=== PATIENT | female | born 1950 | race Caucasian/White ===

== ENCOUNTER 2018-09-26 10:59 | Inpatient (IN) | payer OTHER | END 2018-09-29 11:50 | disposition home or self-care (01) | LOC: EDH 10:59 → 4AH 09-27 02:00 → EDHIP 11:00 | DX: K57.92 Diverticulitis of intestine, part unspecified, without perforation or abscess without bleeding (principal); N39.0 Urinary tract infection, site not specified; M48.00 Spinal stenosis, site unspecified; I10 Essential (primary) hypertension; E78.5 Hyperlipidemia, unspecified ==

== ENCOUNTER 2019-07-02 12:58 | Observation (INO) | payer OTHER ==
[~2019-07-02] VITALS: Ht 144.8 cm; Wt 55.6 kg
[~2019-07-02 12:58] MED LIST: CITA-107 PO; EZET10TA13 PO; HYDR-4068 PO; LANS30CA53 PO; LISI40TA4 PO; LOVA10TA2 PO; MELO10PO MC; RANI-379 PO; VENL-53 PO
[2019-07-02 13:36] LABS: BASOPHILS % (AUTO) 0.7 % (0.0-5.0); EOSINOPHILS % (AUTO) 3.1 % (0.0-8.0); HEMATOCRIT 36.1 % (36-48); LYMPHOCYTES % (AUTO) 42.3 % (21.0-51.0); MEAN CORPUSCULAR HEMOGLOBIN 32.2 pg (27.0-33.0); MEAN CORPUSCULAR HGB CONC 33.7 g/dL (32.0-36.0); MEAN CORPUSCULAR VOLUME 95.5 fL (79-99); MONOCYTES % (AUTO) 8.8 % (3.0-13.0); NEUTROPHILS % (AUTO) 45.1 % (40.0-77.0); NUCLEATED RED BLOOD CELLS 0.1 % (0.0-0.19); PLATELET COUNT (AUTO) 268 K/uL (130-400); RED BLOOD CELL COUNT(AUTO) 3.78 MIL/uL (4.00-5.50); RED CELL DISTRIBUTION WIDTH 14.2 % (11.0-15.5)
[2019-07-02 13:46] LABS: CREATININE 0.8 mg/dL (0.5-1.5); POTASSIUM 3.8 mmol/L (3.5-5.1)
[2019-07-02 14:12] LABS: ALBUMIN 3.1 g/dL (3.5-5.0); BILIRUBIN,TOTAL 0.8 mg/dL (0.2-1.0); TOTAL PROTEIN, SERUM 5.9 g/dL (6.0-8.3)
[2019-07-02] MEDS ORDERED: SODIUM CHLORIDE 0.9% 1000ML 1,000 ML IV ONE (14:48)
[2019-07-02] MEDS ORDERED: DEXAMETHASONE SOD PHOSPHATE 10MG/ML 1ML VIAL ONE (14:52)
[2019-07-02] MEDS ORDERED: HYDROCODONE/ACETAMINOPHEN 10/325 MG TAB ONE (14:53)
[2019-07-02] MEDS ORDERED: IOHEXOL-350 75 ML VIAL IV ONE (15:03)
[2019-07-02 15:06] LABS: APPEARANCE,URINE Clear (CLEAR); BILIRUBIN,URINE Negative (NEGATIVE); COLOR,URINE Yellow (YELLOW); GLUCOSE, URINE (UA) Negative (NEGATIVE); KETONES,URINE Negative (NEGATIVE); LEUKOCYTE ESTERASE ,URINE Moderate (NEGATIVE); NITRATE,URINE Negative (NEGATIVE); OCCULT BLOOD,URINE Negative (NEGATIVE); PH,URINE 6.5 (5.0-8.0); PROTEIN,URINE Negative (NEGATIVE); UROBILINOGEN,URINE 0.2 mg/dL (0.2-1.0)
[2019-07-02 15:13] LABS: BACTERIA,URINE Rare /HPF (None Seen); RBC,URINE 0-1 /HPF (0-1); SQUAMOUS EPITHELIAL CELL,UR Rare /HPF (0-2)
[2019-07-02] MEDS ORDERED: MAG HYDROX/AL HYDROX/SIMETH ES 30 ML SUSP UDCUP PO PRN (16:15)
[2019-07-02] MEDS ORDERED: ONDANSETRON HCL 4 MG/2 ML VIAL IVP PRN (16:15)
[2019-07-02] MEDS ORDERED: LACTULOSE 20 GM/30 ML UDCUP PO PRN (16:15)
[2019-07-02] MEDS ORDERED: CLONIDINE HCL 0.1 MG TABLET PO PRN (16:15)
[2019-07-02] MEDS ORDERED: DIPHENHYDRAMINE HCL 25 MG CAPSULE PO PRN (16:15)
[2019-07-02] MEDS ORDERED: NITROGLYCERIN 0.4 MG SL TAB SL PRN (16:15)
[2019-07-02] MEDS: SODIUM CHLORIDE 0.9% 1000ML 1,000 ML IV SCH (16:15)
[2019-07-02] MEDS ORDERED: LIDOCAINE HCL-MPF 1% 2ML VIAL IJ PRN (16:15)
[2019-07-02] MEDS ORDERED: GUAIFENESIN-DM 200/20 MG 10 ML PO PRN (16:15)
[2019-07-02] MEDS ORDERED: DiphenhydrAMINE HCL 50 MG/ML VIAL IVP PRN (16:15)
[2019-07-02] MEDS ORDERED: IBUPROFEN 800 MG TAB PO PRN (16:15)
[2019-07-02] MEDS ORDERED: POTASSIUM CHLORIDE 20MEQ/100ML 100 ML IV PRN (16:15)
[2019-07-02] MEDS ORDERED: POTASSIUM CHLORIDE 10% ELIXIR 20 MEQ/15 ML UDCUP PO PRN (16:15)
[2019-07-02] MEDS ORDERED: IPRATROPIUM/ALBUTEROL SULFATE 3 ML SOLUTION IH PRN (16:15)
[2019-07-02] MEDS ORDERED: POTASSIUM CHLORIDE 20 MEQ ERTAB PO PRN (16:15)
[2019-07-02] MEDS ORDERED: ACETAMINOPHEN 325 MG TAB PO PRN ×2 (16:15)
[2019-07-02] MEDS ORDERED: ZOLPIDEM TARTRATE 5 MG TAB PO PRN (16:15)
--- NOTE | 2019-07-02 17:55 | NUR ---
A DIRECT ADMISSION . PER SERVICES OF DR MCPHERSON . PT AAO X 3 AT PRESENT DENIES ANY . SASCHA N REVIEW PLAN OF CARE ,WITH CALL LIGHT IN REACH.
[2019-07-02 18:02] VITALS: BP 144/83
[2019-07-02 19:00] VITALS: BP 140/88
--- NOTE | 2019-07-02 19:00 | NUR ---
sensation lacking to her RT LEG ,UNABLE TO LIFT IT UP AND NUMBNESS . PER . PT INFORMATION . UNABLE TO FEEL . Addendum: 07/02/19 at 2031 by LILIBETH ALVAREZ RN RN Amended: Links added.
--- NOTE | 2019-07-02 19:00 | NUR ---
VTE , REVIEW. WILL DIRECT . VTE . WITH PRIMARY DR. EDUCATION DONE . Addendum: 07/02/19 at 2034 by LILIBETH ALVAREZ RN RN Amended: Links added.
[2019-07-02] MEDS: FAMOTIDINE 20MG TAB 20 MG TAB PO SCH (20:44)
[2019-07-02] MEDS: HYDROCODONE/ACETAMINOPHEN 10/325 MG TAB PO PRN (20:53)
--- NOTE | 2019-07-02 20:53 | NUR ---
MEDS SHIFT ASSESSMENT DONE, PLEASE REFER TO CHART. PT COMPLAINTS OF BACK PAINS. MEDICATED WITH NORCO PO. KEPT COMFORTABLE IN BED. CALL LIGHT WITHIN REACH. WILL RE-ASSESS PT. Addendum: 07/03/[address] ULLOA RN RN Amended: Links added.
[2019-07-02 23:40] VITALS: BP 150/77
--- NOTE | 2019-07-03 02:00 | NUR ---
ROUNDS PT RESTING WELL, FAIRLY ASLEEP. NO DISTRESS NOTED. KEPT RESTED AND COMFORTABLE. CALL LIGHT WITHIN REACH. WILL MONITOR PT.
[2019-07-03 03:00] VITALS: BP 146/85
[2019-07-03] MEDS ORDERED: LINA290C PO (03:07)
[2019-07-03] MEDS ORDERED: CYCL10TA7 PO (03:07)
[2019-07-03] MEDS ORDERED: TRAM-355 PO (03:07)
[2019-07-03] MEDS ORDERED: MONT10TA24 PO (03:07)
[2019-07-03] MEDS ORDERED: DICL75TA5 PO (03:07)
[2019-07-03] MEDS ORDERED: LORA-705 PO (03:07)
--- NOTE | 2019-07-03 05:35 | NUR ---
ROUNDS PT RESTING WELL, NO CONCERNS VERBALIZED. NO DISTRESS NOTED. KEPT COMFORTABLE IN BED. FOR MORE CARE.
[2019-07-03 07:30] VITALS: BP 156/91
[2019-07-03] MEDS: DEXAMETHASONE SOD PHOSPHATE 10MG/ML 1ML VIAL IV SCH (07:55)
[2019-07-03] MEDS: FAMOTIDINE 20MG TAB 20 MG TAB PO SCH ×2 (07:55→20:05)
[2019-07-03] MEDS: HYDROCODONE/ACETAMINOPHEN 10/325 MG TAB PO PRN ×3 (07:55→20:05)
[2019-07-03] MEDS: LANSOPRAZOLE 15 MG SOLU TAB PO SCH (08:26)
[2019-07-03] MEDS: DICLOFENAC SODIUM 75 MG PO SCH ×2 (09:00→20:22)
[2019-07-03] MEDS: VENLAFAXINE HCL XR 37.5 MG CAP PO SCH (09:00)
[2019-07-03] MEDS: LORATADINE 10 MG TABLET PO SCH (09:00)
[2019-07-03] MEDS ORDERED: ***HM***(Linaclotide (Linzess) 290 MCG) PO SCH (09:00)
[2019-07-03] MEDS: LISINOPRIL 40 MG TABLET PO SCH (09:00)
[2019-07-03] MEDS: EZETIMIBE 10 MG TAB PO SCH (09:00)
[2019-07-03 11:00] VITALS: BP 156/77
[2019-07-03] MEDS: SODIUM CHLORIDE 0.9% 1000ML 1,000 ML IV SCH (11:30)
[2019-07-03 15:30] VITALS: BP 149/79
--- NOTE | 2019-07-03 15:37 | NUR ---
MET W PATIENT/ PT AAOX3, NO EVIDENCE OF PAIN, LAUGHING, STATES HAS A CANE, WANTS A WALKER- INDP OF ADLS, USES CANE AT TIME, SHOW BENCH, NO HH/PROVIDER, HAS GONE TO OP PTX IN THE PAST, WILL CONSIDER AGAIN, WILL REVIEW PT NOTES AND GET WALKER PAPER READY FOR [facility] FOR AM Addendum: 07/03/19 at 1540 by DENISE LONDON RN CM Amended: Links added.
[2019-07-03] MEDS ORDERED: SODIUM CHLORIDE 0.9% 10 ML VIAL IVP PRN (16:15)
[2019-07-03] MEDS ORDERED: MONTELUKAST SODIUM 10 MG TAB PO SCH (17:00)
[2019-07-03 19:55] VITALS: BP 138/63
[2019-07-03] MEDS ORDERED: SIMVASTATIN 10 MG TABLET PO SCH (21:00)
[2019-07-03 23:15] VITALS: BP 146/93
[2019-07-04 03:29] VITALS: BP 158/87
[2019-07-04 07:56] VITALS: BP 164/84
[2019-07-04] MEDS: LANSOPRAZOLE 15 MG SOLU TAB PO SCH (08:14)
[2019-07-04] MEDS: EZETIMIBE 10 MG TAB PO SCH (08:14)
[2019-07-04] MEDS: FAMOTIDINE 20MG TAB 20 MG TAB PO SCH (08:14)
[2019-07-04] MEDS: HYDROCODONE/ACETAMINOPHEN 10/325 MG TAB PO PRN (08:15)
[2019-07-04] MEDS: LORATADINE 10 MG TABLET PO SCH (08:15)
[2019-07-04] MEDS: LISINOPRIL 40 MG TABLET PO SCH (08:15)
[2019-07-04] MEDS: VENLAFAXINE HCL XR 37.5 MG CAP PO SCH (08:15)
[2019-07-04] MEDS: DEXAMETHASONE SOD PHOSPHATE 10MG/ML 1ML VIAL IV SCH (08:16)
--- NOTE | 2019-07-04 09:38 | NUR ---
SPPOEK TO MD AND PATIENTHUSBAND. TOLD OF PLAN FOR DISCHARGE- ADVISED MD THAT PT DOES NOT MEET IP CRITERIA, IF GOING TO DISCHARGE, SPOKE TO PT, SHE STATES DOES NOT NEED WALKER, DOING MUCH BETTER WALKING
--- NOTE | 2019-07-04 10:20 | NUR ---
DISCHARGE NOTE PATIENT GIVEN DISCHARGE INSTRUCTIONS, INSTRUCTED ALL HOME MEDICATIONS CONTINUE WITH NO CHANGE. NO NEW RX. IV DISCONTINUED WITH NO COMPLICATIONS. PATIENT AT THIS TIME AAOX4, DENIES PAIN. SPOUSE AT BEDSIDE. TO BE TRANSPORTED HOME BY PRIVATE CAR. INSTRUCTED TO FOLLOW UP WITH DR. MCPHERSON ON MONDAY
== END 2019-07-04 10:30 | disposition home or self-care (01) ==
LOC: EDH 12:58 → EDHIP 13:17 → INTOOBSV 13:17 → 3DH 17:47
PROVIDERS: ADMIT Family Medicine; ATTEND Family Medicine
DX: M54.16 Radiculopathy, lumbar region (principal); I10 Essential (primary) hypertension; E78.5 Hyperlipidemia, unspecified; R26.9 Unspecified abnormalities of gait and mobility; Z90.49 Acquired absence of other specified parts of digestive tract; Z90.710 Acquired absence of both cervix and uterus; Z79.899 Other long term (current) drug therapy; Z88.5 Allergy status to narcotic agent; Z88.1 Allergy status to other antibiotic agents
CPT/HCPCS: 36415; 72132; 80053; 81001; 85025; 94664; 96374; 96376; 97116 ×2; 97161; 99284; A4510; G0378; G8978; G8979; G8980; G8981; G8982; G8983; J1100 ×5; J7030; Q9967